=== PATIENT | female | born 1955 | race Caucasian/White ===

== ENCOUNTER → 2023-12-02 08:26 | Outpatient (REF) | payer OTHER, SELFPAY ==
[2023-12-02 12:14] LABS: ALT (SGPT) 22 U/L (0-35); AST (SGOT) 20 U/L (14-36); Albumin 4.5 g/dl (3.5-5.0); Alkaline Phosphatase 64 U/L (38-126); Blood Urea Nitrogen 15 mg/dl (7-17); Calcium 9.4 mg/dl (8.4-10.2); Carbon Dioxide 26 mmol/L (22-30); Chloride 106 mmol/L (98-107); Glucose 119 mg/dl (70-99); HDL Cholesterol 81 mg/dl; LDL Cholesterol, Calculated 99 mg/dl; Potassium 4.5 mmol/L (3.5-5.1); Sodium 140 mmol/L (135-145); Total Bilirubin 0.7 mg/dl (0.2-1.3); Total Cholesterol 194 mg/dl (50-199); Total Protein 7.3 g/dl (6.3-8.2); Triglyceride 73 mg/dl (10-149); Very Low Density Lipoprotein 14 mg/dl (0-30); eGFR > 60.00
[2023-12-02 12:38] LABS: TSH Reflex To Free T4 2.66 uIU/ml (0.47-4.68)
== END ==
LOC: HWLAB 08:26
PROVIDERS: ATTENDING PHYSICIAN Family Medicine
DX: R73.01 Impaired fasting glucose (principal); E78.00 Pure hypercholesterolemia, unspecified; Z00.00 Encounter for general adult medical examination without abnormal findings; Z86.39 Personal history of other endocrine, nutritional and metabolic disease
CPT/HCPCS: 36415; 80053; 80061; 83036; 84443

== ENCOUNTER → 2023-12-08 09:25 | Outpatient (REF) | payer OTHER, SELFPAY ==
[2023-12-08 15:57] LABS: Lyme Antibody Screen, EIA Negative (Negative)
== END ==
LOC: HWLAB 09:25
PROVIDERS: ATTENDING PHYSICIAN Family Medicine
DX: M25.50 Pain in unspecified joint (principal)
CPT/HCPCS: 36415; 86618

== ENCOUNTER → 2024-04-10 11:32 | Outpatient (REF) | payer OTHER, SELFPAY | LOC: MRI 3T 11:32 | PROVIDERS: ATTENDING PHYSICIAN Physician Assistant Surgical; FAMILY PHYSICIAN Family Medicine | DX: M25.512 Pain in left shoulder (principal) | CPT/HCPCS: 73221 ==

== ENCOUNTER → 2024-04-11 11:38 | Outpatient (REF) | payer OTHER, SELFPAY | LOC: HWWDC 11:38 | PROVIDERS: ATTENDING PHYSICIAN Obstetrics & Gynecology; FAMILY PHYSICIAN Family Medicine | DX: Z12.31 Encounter for screening mammogram for malignant neoplasm of breast (principal) | CPT/HCPCS: 77063; 77067 ==

== ENCOUNTER → 2024-07-18 09:03 | Outpatient (REF) | payer OTHER, SELFPAY ==
[2024-07-18 12:17] LABS: % Basophils 0.4 % (0-2); % Immature Granulocytes 0.7 % (0-0.5); % Lymphocytes 34.5 % (20.5-51.1); % Monocytes 19.1 % (1.7-9.3); % Neutrophils 43.3 % (42.2-75.2); Absolute Eosinophils 0.1 10^3/uL (0-0.7); Absolute Lymphocytes 1.6 10^3/uL (1.2-3.4); Absolute Monocytes 0.9 10^3/uL (0.1-0.6); Hematocrit 34.9 % (37.0-47.0); Hemoglobin 12.2 g/dL (12.0-16.0); Mean Corpuscular Hgb 28.9 pg (27.0-31.0); Mean Corpuscular Volume 82.7 fL (81.0-99.0); Mean Platelet Volume 10.8 fL (7.4-10.4); Nucleated Red Blood Cells % 0 %; Platelet Count 183 10^3/uL (130-400); Red Blood Cell Count 4.22 10^6/uL (4.20-5.40); Red Cell Dist. Width 12.3 % (11.5-14.5); White Blood Cell Count 4.6 10^3/uL (4.8-10.8)
[2024-07-18 12:38] LABS: Glycohemoglobin (HgbA1c) 5.7 % (4.0-5.6)
[2024-07-18 12:40] LABS: ALT (SGPT) 24 U/L (0-35); AST (SGOT) 21 U/L (14-36); Albumin 4.7 g/dl (3.5-5.0); Alkaline Phosphatase 46 U/L (38-126); Blood Urea Nitrogen 16 mg/dl (7-17); Calcium 9.8 mg/dl (8.4-10.2); Carbon Dioxide 25 mmol/L (22-30); Chloride 107 mmol/L (98-107); Glucose 111 mg/dl (70-99); HDL Cholesterol 88 mg/dl; LDL Cholesterol, Calculated 94 mg/dl; Potassium 4.8 mmol/L (3.5-5.1); Sodium 144 mmol/L (135-145); Total Bilirubin 0.6 mg/dl (0.2-1.3); Total Cholesterol 196 mg/dl (50-199); Total Protein 7.5 g/dl (6.3-8.2); Triglyceride 73 mg/dl (10-149); Very Low Density Lipoprotein 14 mg/dl (0-30); eGFR > 60.00
[2024-07-18 12:50] LABS: Vitamin D, 25-OH*** 39.7 ng/mL (30-80)
[2024-07-18 13:04] LABS: TSH Reflex To Free T4 2.24 uIU/ml (0.47-4.68)
[2024-07-18 15:59] LABS: Intact PTH 63.1 pg/ml (13.6-85.8)
== END ==
LOC: HWLAB 09:03
PROVIDERS: ATTENDING PHYSICIAN Family Medicine
DX: R73.01 Impaired fasting glucose (principal); E78.00 Pure hypercholesterolemia, unspecified; Z86.39 Personal history of other endocrine, nutritional and metabolic disease; E55.9 Vitamin D deficiency, unspecified; C64.9 Malignant neoplasm of unspecified kidney, except renal pelvis; R53.83 Other fatigue; Z13.29 Encounter for screening for other suspected endocrine disorder
CPT/HCPCS: 36415; 80053; 80061; 82306; 83036; 83970; 84443; 85025

== ENCOUNTER → 2024-07-27 08:51 | Outpatient (REF) | payer OTHER, SELFPAY ==
[2024-07-27 12:42] LABS: % Basophils 0.4 % (0-2); % Eosinophils 1.5 % (0-6); % Immature Granulocytes 0.4 % (0-0.5); % Lymphocytes 37.9 % (20.5-51.1); % Monocytes 18.6 % (1.7-9.3); % Neutrophils 41.2 % (42.2-75.2); Absolute Eosinophils 0.1 10^3/uL (0-0.7); Absolute Lymphocytes 1.8 10^3/uL (1.2-3.4); Absolute Monocytes 0.9 10^3/uL (0.1-0.6); Absolute Neutrophils 1.9 10^3/uL (1.4-6.5); Hematocrit 35.8 % (37.0-47.0); Hemoglobin 12.3 g/dL (12.0-16.0); Mean Corp Hgb Conc. 34.4 g/dL (33.0-37.0); Mean Corpuscular Hgb 29.4 pg (27.0-31.0); Mean Corpuscular Volume 85.4 fL (81.0-99.0); Mean Platelet Volume 11.1 fL (7.4-10.4); Nucleated Red Blood Cells % 0 %; Platelet Count 195 10^3/uL (130-400); Red Blood Cell Count 4.19 10^6/uL (4.20-5.40); Red Cell Dist. Width 11.9 % (11.5-14.5); White Blood Cell Count 4.7 10^3/uL (4.8-10.8)
[2024-07-27 12:48] LABS: Urine Albumin Negative (Neg - Trace); Urine Bilirubin Negative (Negative); Urine Character Clear (Clear); Urine Color Yellow; Urine Glucose Negative (Negative); Urine Ketone Negative (Negative); Urine Leukocyte Negative (Negative); Urine Nitrite Negative (Negative); Urine Occult Blood 1+ (Negative); Urine Urobilinogen Negative (Neg - 1+)
[2024-07-27 13:12] LABS: Urine Red Blood Cell 16-20 /HPF (0-2); Urine White Cell 0-2 /HPF (0-5)
[2024-07-27 13:13] LABS: Urine Bacteria Few (Negative)
[2024-07-27 13:18] LABS: Erythrocyte Sed Rate 14 mm/hour (0-20)
[2024-07-28 22:48] LABS: HLA-B27 Negative (Negative)
== END ==
LOC: HWLAB 08:51
PROVIDERS: ATTENDING PHYSICIAN Family Medicine
DX: D72.821 Monocytosis (symptomatic) (principal); C64.9 Malignant neoplasm of unspecified kidney, except renal pelvis; R53.83 Other fatigue; M25.50 Pain in unspecified joint
CPT/HCPCS: 36415; 81003; 81015; 84155; 84165; 85025; 85652; 86038; 86140; 86235; 86430; 86618; 86666; 86753; 86757; 86812

== ENCOUNTER → 2024-08-10 07:05 | Outpatient (REF) | payer OTHER, SELFPAY | LOC: HWRAD 07:05 | PROVIDERS: ATTENDING PHYSICIAN Family Medicine | DX: D72.821 Monocytosis (symptomatic) (principal); C64.9 Malignant neoplasm of unspecified kidney, except renal pelvis | CPT/HCPCS: 76775 ==

== ENCOUNTER → 2024-09-25 07:39 | Outpatient (REF) | payer OTHER, SELFPAY | LOC: EMG 07:39 | PROVIDERS: ATTENDING PHYSICIAN Orthopaedic Surgery; FAMILY PHYSICIAN Family Medicine | DX: R20.0 Anesthesia of skin (principal) | CPT/HCPCS: 95886; 95909 ==

== ENCOUNTER → 2024-10-08 07:49 | Outpatient (REF) | payer OTHER, SELFPAY | LOC: HWRAD 07:49 | PROVIDERS: ATTENDING PHYSICIAN Internal Medicine; FAMILY PHYSICIAN Family Medicine | DX: K21.9 Gastro-esophageal reflux disease without esophagitis (principal); R10.13 Epigastric pain | CPT/HCPCS: 76700 ==

== ENCOUNTER 2024-10-11 06:16 | Day surgery (SDC) | payer OTHER, SELFPAY | END 2024-10-11 13:43 | disposition home or self-care (01) | LOC: GI 06:16 | PROVIDERS: ATTENDING PHYSICIAN Internal Medicine | DX: R10.13 Epigastric pain (principal); R10.11 Right upper quadrant pain; K44.9 Diaphragmatic hernia without obstruction or gangrene; K22.2 Esophageal obstruction; K31.7 Polyp of stomach and duodenum; K21.00 Gastro-esophageal reflux disease with esophagitis, without bleeding; K25.9 Gastric ulcer, unspecified as acute or chronic, without hemorrhage or perforation; K31.89 Other diseases of stomach and duodenum | CPT/HCPCS: 43239; 88305; 88342 ==

== ENCOUNTER → 2024-11-13 08:23 | Outpatient (REF) | payer OTHER, SELFPAY ==
[2024-11-13 10:13] LABS: % Basophils 0.3 % (0-2); % Eosinophils 0.5 % (0-6); % Immature Granulocytes 0.5 % (0-0.5); % Lymphocytes 38.6 % (20.5-51.1); % Monocytes 16.5 % (1.7-9.3); % Neutrophils 43.6 % (42.2-75.2); Absolute Lymphocytes 1.4 10^3/uL (1.2-3.4); Absolute Monocytes 0.6 10^3/uL (0.1-0.6); Absolute Neutrophils 1.6 10^3/uL (1.4-6.5); Hematocrit 34.3 % (37.0-47.0); Hemoglobin 11.8 g/dL (12.0-16.0); Mean Corp Hgb Conc. 34.4 g/dL (33.0-37.0); Mean Corpuscular Hgb 29.1 pg (27.0-31.0); Mean Corpuscular Volume 84.7 fL (81.0-99.0); Mean Platelet Volume 9.9 fL (7.4-10.4); Nucleated Red Blood Cells % 0 %; Platelet Count 154 10^3/uL (130-400); Red Blood Cell Count 4.05 10^6/uL (4.20-5.40); Red Cell Dist. Width 12.6 % (11.5-14.5); White Blood Cell Count 3.7 10^3/uL (4.8-10.8)
[2024-11-13 10:16] LABS: ALT (SGPT) 23 U/L (0-35); AST (SGOT) 19 U/L (14-36); Albumin 4.7 g/dl (3.5-5.0); Alkaline Phosphatase 53 U/L (38-126); Blood Urea Nitrogen 13 mg/dl (7-17); Calcium 9.5 mg/dl (8.4-10.2); Carbon Dioxide 23 mmol/L (22-30); Chloride 106 mmol/L (98-107); Glucose 112 mg/dl (70-99); Potassium 4.8 mmol/L (3.5-5.1); Sodium 140 mmol/L (135-145); Total Protein 7.2 g/dl (6.3-8.2); eGFR > 60.00
[2024-11-13 10:30] LABS: Vitamin D, 25-OH*** 33.3 ng/mL (30-80)
[2024-11-13 11:01] LABS: Erythrocyte Sed Rate 3 mm/hour (0-20)
[2024-11-13 11:21] LABS: Folate 10.7 ng/ml (2.76-20); Vitamin B12 462 pg/ml (239-931)
[2024-11-14 19:05] LABS: CCP Antibody IgG/IgA 4 Units (0-19)
== END ==
LOC: HWLAB 08:23
PROVIDERS: ATTENDING PHYSICIAN Internal Medicine Rheumatology; FAMILY PHYSICIAN Family Medicine
DX: D51.9 Vitamin B12 deficiency anemia, unspecified (principal); E55.9 Vitamin D deficiency, unspecified; M25.50 Pain in unspecified joint
CPT/HCPCS: 36415; 80053; 82306; 82607; 82746; 85025; 85652; 86140; 86200

== ENCOUNTER → 2025-01-25 08:24 | Outpatient (REF) | payer OTHER, SELFPAY ==
[2025-01-25 09:55] LABS: % Basophils 0.3 % (0-2); % Eosinophils 1.2 % (0-6); % Immature Granulocytes 0.3 % (0-0.5); % Lymphocytes 41.1 % (20.5-51.1); % Monocytes 15.5 % (1.7-9.3); % Neutrophils 41.6 % (42.2-75.2); Absolute Lymphocytes 1.4 10^3/uL (1.2-3.4); Absolute Monocytes 0.5 10^3/uL (0.1-0.6); Absolute Neutrophils 1.4 10^3/uL (1.4-6.5); Hematocrit 33.9 % (37.0-47.0); Hemoglobin 11.8 g/dL (12.0-16.0); Mean Corp Hgb Conc. 34.8 g/dL (33.0-37.0); Mean Corpuscular Hgb 29.8 pg (27.0-31.0); Mean Corpuscular Volume 85.6 fL (81.0-99.0); Mean Platelet Volume 10.1 fL (7.4-10.4); Nucleated Red Blood Cells % 0 %; Platelet Count 155 10^3/uL (130-400); Red Blood Cell Count 3.96 10^6/uL (4.20-5.40); Red Cell Dist. Width 12.2 % (11.5-14.5); White Blood Cell Count 3.4 10^3/uL (4.8-10.8)
[2025-01-25 10:27] LABS: ALT (SGPT) 23 U/L (0-35); AST (SGOT) 20 U/L (14-36); Albumin 4.6 g/dl (3.5-5.0); Alkaline Phosphatase 41 U/L (38-126); Blood Urea Nitrogen 13 mg/dl (7-17); Calcium 9.4 mg/dl (8.4-10.2); Carbon Dioxide 27 mmol/L (22-30); Chloride 109 mmol/L (98-107); Glucose 117 mg/dl (70-99); HDL Cholesterol 80 mg/dl; LDL Cholesterol, Calculated 101 mg/dl; Potassium 4.6 mmol/L (3.5-5.1); Sodium 143 mmol/L (135-145); Total Bilirubin 0.9 mg/dl (0.2-1.3); Total Cholesterol 192 mg/dl (50-199); Total Protein 7.2 g/dl (6.3-8.2); Triglyceride 58 mg/dl (10-149); Very Low Density Lipoprotein 11 mg/dl (0-30); eGFR > 60.00
[2025-01-25 10:56] LABS: TSH Reflex To Free T4 2.46 uIU/ml (0.47-4.68)
[2025-01-25 13:05] LABS: Glycohemoglobin (HgbA1c) 5.8 % (4.0-5.6)
[2025-01-26 11:06] LABS: Intact PTH 94.5 pg/ml (13.6-85.8)
== END ==
LOC: HWLAB 08:24
PROVIDERS: ATTENDING PHYSICIAN Family Medicine
DX: R73.01 Impaired fasting glucose (principal); C64.9 Malignant neoplasm of unspecified kidney, except renal pelvis; D72.821 Monocytosis (symptomatic); R53.83 Other fatigue; E78.00 Pure hypercholesterolemia, unspecified
CPT/HCPCS: 36415; 80053; 80061; 83036; 83970; 84443; 85025

== ENCOUNTER → 2025-02-22 07:24 | Outpatient (REF) | payer OTHER, SELFPAY ==
[2025-02-22 09:43] LABS: Urine Albumin Negative (Neg - Trace); Urine Bilirubin Negative (Negative); Urine Character Clear (Clear); Urine Color Yellow; Urine Glucose Negative (Negative); Urine Ketone Negative (Negative); Urine Leukocyte 1+ (Negative); Urine Nitrite Negative (Negative); Urine Occult Blood Negative (Negative); Urine Specific Gravity 1.015 (<1.030); Urine Urobilinogen Negative (Neg - 1+)
[2025-02-22 10:47] LABS: Urine Amorphous Seen
[2025-02-22 10:48] LABS: Urine Mucus Many
[2025-02-22 10:52] LABS: Urine Red Blood Cell 0-2 /HPF (0-2)
== END ==
LOC: HWLAB 07:24
PROVIDERS: ATTENDING PHYSICIAN Registered Nurse
DX: R42 Dizziness and giddiness (principal); W57.XXXA Bitten or stung by nonvenomous insect and other nonvenomous arthropods, initial encounter; R41.0 Disorientation, unspecified
CPT/HCPCS: 36415; 81003; 81015; 86618; 86666; 86753; 86757; 87077; 87086; 87147

== ENCOUNTER 2025-03-05 18:32 | Inpatient (IN) | payer OTHER, SELFPAY ==
[2025-03-05 11:34] VITALS: BP 124/85
--- NOTE | 2025-03-05 12:11 | ED.GENMED ---
History of Present Illness
<DO Tutu aAron Last Filed: 03/05/25 12:18>
General
Chief Complaint: Abdominal Pain
Source: patient
Time Seen by Provider: 03/05/25 11:40
History of Present Illness
History of Present Illness:
The patient is a 69-year-old female presenting with severe abdominal pain that began the previous night. She describes the pain as constant with intermittent spasms and 'like a horrible cramp and a stabbing pain in the rectum,' which makes sitting
difficult. There is a relevant past medical history of volvulus and right-sided colon resection. The patient attempted to attribute the pain to her existing low back problems and took a muscle relaxant and two Advil thinking it might be related to
back spasms. She has not experienced relief from these measures. The patient reports feeling constipated with latterly occurring loose stools but states she passed a large stool of baseball size following a bisacodyl enema prior to that. The
abdominal pain radiates but is described as not exacerbated by palpation to the specific area during the exam.
Past History
<DO Tutu Aaron Last Filed: 03/05/25 12:18>
Past History
ED Past Medical History: Other (Migraine headaches, osteoarthritis)
ED Past Surgical History: Gynecological (Laparoscopic BTL), Orthopedic and Other (Parathyroidectomy)
Social History
Tobacco: Non-smoker
Alcohol: None
Living: with family
Employment: Employed
Family History
Family History: Negative Early CAD or CAD
Phy Exam
<DO Tutu Aaron Last Filed: 03/05/25 12:18>
Physical Exam
Physical Exam:
General: Awake, Alert, Oriented X3. Appears somewhat uncomfortable
Vitals: unremarkable
Head: Atraumatic
Eyes: Pupils equal, EOMI
Throat: Airway intact, no exudates
Neck: Trachea midline
Lungs: Clear and equal b/l
Heart: Regular rate, no murmurs
Abd: Soft, moderate tenderness to palpation of the central abdomen, no rebound, no distention,, No pulsatile mass
Rectal: No stool in the rectal vault
Neuro: Nonfocal
Skin: Warm, dry, no rash
Extremities: pulses equal b/l, no edema
Course
<Parth Encinas, DO - Last Filed: 03/05/25 12:18>
Orders/Labs/Results
Orders:
Orders
03/05/25 12:07
CT Abd/pel W Iv And Oral Contr Urgent
Comment:
Reason For Exam: abd pain
0.9% Sodium Chloride 1000 ml [Nss] 1,000 ml IV BOLUS
HYDROmorphone [Dilaudid] 0.5 mg IV NOW STA
Iohexol [Omnipaque] See Protocol PO NOW STA
Ondansetron Injectable [Zofran] 4 mg IV NOW STA
03/05/25 12:27
Complete Blood Count/With Diff Urgent
Manual Differential Urgent
03/05/25 12:35
Urinalysis Reflex To Culture Urgent
Date Specimen was Collected: 03/05/25
Time Specimen was Collected: 12:32
Urine Microscopic Reflex Cult Urgent
03/05/25 13:18
Comprehensive Metabolic Panel Urgent
Lipase Urgent
03/05/25 17:59
Admit/Transfer Patient As Directed
Co-Sign Provider:
Level of Care: Inpatient admission
Assign to:: Medical/Surgical
Physician / Group: [facility]/medicine
Diagnosis: colitis
Reason for Hospitalization: abd pain, colitis
Expected length of stay greater than two midnights?: Yes
ELOS- Estimated Length of Stay in days: 3
I certify the patient meets the requirements for IP care: Yes
PRN Pain Medication Management As Directed
May give lesser potent ordered pain med per pt: Yes
preference::
Protocol:: Medication orders for pain may be administered in a
manner that supports deferring to patient preference
when the pt is:
- Requesting an ordered lesser potent pain medication.
Least to most potent pain medications are defined
as: acetaminophen < NSAID < tramadol < opioids
(morphine, oxycodone, hydromorphone).
- Requesting a lesser dose of the same medication IF
ORDERED.
- Requesting a less intrusive route of administration
if both routes are prescribed by the provider (PO <
IV).
03/05/25 18:01
Code Status As Directed
Resuscitation Status: Full Code
03/05/25 18:06
EKG [Electrocardiogram (*1)] Stat
Reason for Study: QTc Monitoring
Abnormal Lab Results
03/05/25 03/05/25 03/05/25
12:27 12:35 13:18
WBC 19.1 H 10^3/uL
(4.8-10.8)
RBC 3.96 L 10^6/uL
(4.20-5.40)
Hgb 11.8 L g/dL
(12.0-16.0)
Hct 33.4 L %
(37.0-47.0)
Abs Neuts (Manual) 8.0 H 10^3/uL
(1.4-6.5)
Segmented Neutrophils 37 L %
(42-75)
Band Neutrophils 5 H %
(0-3)
Lymphocytes (Manual) 12 L %
(20-51)
Blast Cells 14 H* %
(-)
Chloride 110 H mmol/L
(98-107)
Glucose 123 H mg/dl
(70-99)
Urine Ketones 1+ A
(Negative)
Ur Occult Blood Reflex 2+ A
(Negative)
Urine Bacteria (Reflex) Few A
(Negative)
Urine Albumin (Reflex) 2+ A
(Neg - Trace)
03/05/25 12:27
03/05/25 13:18
Vital Signs
Initial and Last Documented VS:
Initial Vital Signs
Temp Pulse Resp BP Pulse Ox
98.0 F 97 17 124/85 97
03/05/25 11:34 03/05/25 11:34 03/05/25 11:34 03/05/25 11:34 03/05/25 11:34
Last Documented Vital Signs
Temp Pulse Resp BP Pulse Ox
98.0 F 75 20 116/64 96
03/05/25 11:34 03/05/25 18:15 03/05/25 18:15 03/05/25 14:00 03/05/25 17:30
<Skip Figueroa MD - Last Filed: 03/05/25 18:51>
Orders/Labs/Results
Orders:
Orders
03/05/25 12:07
CT Abd/pel W Iv And Oral Contr Urgent
Comment:
Reason For Exam: abd pain
0.9% Sodium Chloride 1000 ml [Nss] 1,000 ml IV BOLUS
HYDROmorphone [Dilaudid] 0.5 mg IV NOW STA
Iohexol [Omnipaque] See Protocol PO NOW STA
Ondansetron Injectable [Zofran] 4 mg IV NOW STA
03/05/25 12:27
Complete Blood Count/With Diff Urgent
Manual Differential Urgent
03/05/25 12:35
Urinalysis Reflex To Culture Urgent
Date Specimen was Collected: 03/05/25
Time Specimen was Collected: 12:32
Urine Microscopic Reflex Cult Urgent
03/05/25 13:18
Comprehensive Metabolic Panel Urgent
Lipase Urgent
03/05/25 17:59
Admit/Transfer Patient As Directed
Co-Sign Provider:
Level of Care: Inpatient admission
Assign to:: Medical/Surgical
Physician / Group: [facility]/medicine
Diagnosis: colitis
Reason for Hospitalization: abd pain, colitis
Expected length of stay greater than two midnights?: Yes
ELOS- Estimated Length of Stay in days: 3
I certify the patient meets the requirements for IP care: Yes
PRN Pain Medication Management As Directed
May give lesser potent ordered pain med per pt: Yes
preference::
Protocol:: Medication orders for pain may be administered in a
manner that supports deferring to patient preference
when the pt is:
- Requesting an ordered lesser potent pain medication.
Least to most potent pain medications are defined
as: acetaminophen < NSAID < tramadol < opioids
(morphine, oxycodone, hydromorphone).
- Requesting a lesser dose of the same medication IF
ORDERED.
- Requesting a less intrusive route of administration
if both routes are prescribed by the provider (PO <
IV).
03/05/25 18:01
Code Status As Directed
Resuscitation Status: Full Code
03/05/25 18:06
EKG [Electrocardiogram (*1)] Stat
Reason for Study: QTc Monitoring
Abnormal Lab Results
03/05/25 03/05/25 03/05/25
12:27 12:35 13:18
WBC 19.1 H 10^3/uL
(4.8-10.8)
RBC 3.96 L 10^6/uL
(4.20-5.40)
Hgb 11.8 L g/dL
(12.0-16.0)
Hct 33.4 L %
(37.0-47.0)
Abs Neuts (Manual) 8.0 H 10^3/uL
(1.4-6.5)
Segmented Neutrophils 37 L %
(42-75)
Band Neutrophils 5 H %
(0-3)
Lymphocytes (Manual) 12 L %
(20-51)
Blast Cells 14 H* %
(-)
Chloride 110 H mmol/L
(98-107)
Glucose 123 H mg/dl
(70-99)
Urine Ketones 1+ A
(Negative)
Ur Occult Blood Reflex 2+ A
(Negative)
Urine Bacteria (Reflex) Few A
(Negative)
Urine Albumin (Reflex) 2+ A
(Neg - Trace)
03/05/25 12:27
03/05/25 13:18
Vital Signs
Initial and Last Documented VS:
Initial Vital Signs
Temp Pulse Resp BP Pulse Ox
98.0 F 97 17 124/85 97
03/05/25 11:34 03/05/25 11:34 03/05/25 11:34 03/05/25 11:34 03/05/25 11:34
Last Documented Vital Signs
Temp Pulse Resp BP Pulse Ox
98.0 F 75 20 116/64 96
03/05/25 11:34 03/05/25 18:15 03/05/25 18:15 03/05/25 14:00 03/05/25 17:30
<Parth Encinas, - Last Filed: 03/05/25 12:18>
MDM/Problems Addressed
Differential Diagnosis Includes:
The Differential Diagnosis includes, in no particular order and is not limited to:
1. Bowel obstruction
2. Volvulus recurrence
3. Diverticulitis
4. Constipation
5. Hernia
6. Bowel ischemia
8. Abdominal aortic aneurysm
9. Appendicitis
10. Renal colic
MDM/Problems Addressed:
- Initiate blood work and a computed tomography scan with contrast due to prior bowel surgery to evaluate abdominal pain further.
- Administer anti-nausea and pain medication. Dilaudid is the preferred option as the patient has previously tolerated it.
- Review imaging results to assess for potential abdominal conditions given the surgical history and current symptoms.
<Skip Figueroa MD - Last Filed: 03/05/25 18:51>
*Critical Care Note
Total Time (30-74mins, 75-104mins- exclusive of procedures): Not Applicable
<Skip Figueroa MD - Last Filed: 03/05/25 18:51>
Update Note
Update Note:
CT shows colitis versus diverticulitis. With WBC of 19, warrants inpatient management. Also has a 14% blast cell.
ED Attending Note
<Parth Encinas DO - Last Filed: 03/05/25 12:18>
-
Portions of this chart may have been created with voice recognition software.� Occasional wrong word or��sound alike� substitutions may have occurred due to the inherent limitations of voice recognition software.
Discharge Plan
Departure
Patient Disposition: Admit
Date of Disposition: 03/05/25
Time of Disposition: 17:50
Presentation/result/management discussed w/ accepting MD/DO: Hospitalist
Discharge Problem:
Diverticulitis versus colitis, Elevated blast cells
Interventions
Interventions:
*Risk Screen - Suicide Last Done: 03/05/25 11:36
*General Assessment Last Done: 03/05/25 11:36
*Neglect/Abuse Screening Last Done: 03/05/25 11:36
*ED- Fall Risk Assessment Last Done: 03/05/25 12:33
*ED COVID-19 Vaccine History Last Done: 03/05/25 11:36
TQ-Ftbykt-Berpjshpbn Assessment Last Done: 03/05/25 12:02
[2025-03-05 12:24] VITALS: BP 129/68
[2025-03-05 12:26] VITALS: BMI 32.8
[2025-03-05] MEDS: OMNIPAQUE 50 ML PO (12:28)
[2025-03-05] MEDS: ZOFRAN 4 MG IV (12:30)
[2025-03-05] MEDS: NSS 1000 IV (12:30)
[2025-03-05] MEDS: DILAUDID 0.5 MG IV (12:30)
[2025-03-05 13:00] VITALS: BP 117/61
[2025-03-05 13:03] LABS: Hematocrit 33.4 % (37.0-47.0); Hemoglobin 11.8 g/dL (12.0-16.0); Mean Corp Hgb Conc. 35.3 g/dL (33.0-37.0); Mean Corpuscular Hgb 29.8 pg (27.0-31.0); Mean Corpuscular Volume 84.3 fL (81.0-99.0); Red Blood Cell Count 3.96 10^6/uL (4.20-5.40); White Blood Cell Count 19.1 10^3/uL (4.8-10.8)
[2025-03-05 13:03] LABS: Urine Albumin 2+ (Neg - Trace); Urine Bilirubin Negative (Negative); Urine Character Clear (Clear); Urine Color Yellow; Urine Glucose Negative (Negative); Urine Ketone 1+ (Negative); Urine Leukocyte Negative (Negative); Urine Nitrite Negative (Negative); Urine Occult Blood 2+ (Negative); Urine Urobilinogen Negative (Neg - 1+)
[2025-03-05 13:52] LABS: ALT (SGPT) 18 U/L (0-35); AST (SGOT) 18 U/L (14-36); Albumin 4.3 g/dl (3.5-5.0); Alkaline Phosphatase 40 U/L (38-126); Blood Urea Nitrogen 8 mg/dl (7-17); Carbon Dioxide 23 mmol/L (22-30); Chloride 110 mmol/L (98-107); Estimated Creatinine Clearance 75 ml/min; Glucose 123 mg/dl (70-99); Lipase 48 U/L (23-300); Potassium 3.9 mmol/L (3.5-5.1); Sodium 138 mmol/L (135-145); Total Bilirubin 0.8 mg/dl (0.2-1.3); Total Protein 7.1 g/dl (6.3-8.2); eGFR > 60.00
[2025-03-05 14:00] VITALS: BP 116/64
[2025-03-05 14:41] LABS: Urine Hyaline Cast 0-2 /LPF (0-2); Urine Mucus Few; Urine Urothelial Cell 0-2 /LPF (FEW)
[2025-03-05 14:42] LABS: Urine Bacteria Few (Negative); Urine Red Blood Cell 0-2 /HPF (0-2); Urine White Cell 0-2 /HPF (0-5)
[2025-03-05 17:31] LABS: Band Neutrophils 5 % (0-3); Nucleated Red Blood Cells % 2 %
[2025-03-05 17:41] LABS: Anisocytosis 1+; Microcytosis 1+; Normal RBC Morphology No; Platelets Checked Yes
[2025-03-05 17:42] LABS: Hypochromasia 1+; Poikilocytosis Slight; Total Cells Counted 100
--- NOTE | 2025-03-05 18:07 | HPS.HSE ---
Family Physician
-
Family Physician: Paxton Fink Jr.
Chief Complaint
-
Abdominal pain
History of Present Illness
69-year-old female with past medical history of laparoscopic BTL, with volvulus and right-sided colon resection, parathyroidectomy, migraine headaches and osteoarthritis comes in with severe abdominal pain that began the night before. Cramping-like
sensation, sometimes stabbing pain in in the rectum which makes it difficult for her to sit. Patient has been feeling constipated lately but passed large basal size stool following enema. No pain regimen has improved symptoms. Patient has some
moderate tenderness to palpation of central abdomen. Remains afebrile, respiratory 21, pulse 68, saturate 97% on room air, 116/64. White count noted to be 19.1, also notable blast cells of 14%. CT imaging with left lobe hepatic simple cyst and
anterior splenic simple cysts cystic lesion, slightly increased in size compared to prior study, subcentimeter low-attenuation posterior segment of the lobe hepatic lesion, too small to characterize. There is lack of contrast orally and although
noted a elongated segment of stranding about the mid to distal sigmoid colon with some subtle pectin mild sigmoid wall thickening. No weight loss, actual weight gain of 6 lbs in last few months. No night sweats.
Medical History
Past Medical History
Past Medical History: Reports Other (Migraine headaches, osteoarthritis))
Past Surgical History: Reports Other ( Gynecological (Laparoscopic BTL), Orthopedic and Other (Parathyroidectomy))
Social History
Tobacco: Non-smoker
Drug: None
Family History
Family History: Not pertinent
Allergies / Home Medications
Allergies reflects when Allergies were last updated in [facility].
Home Medications with original date entered in [facility]
Allergy/Medication List:
Allergies
Allergy/AdvReac Type Severity Reaction Status Date / Time
clindamycin Allergy C-DIFF Verified 03/05/25 11:35
erythromycin base Allergy Anaphylaxis, Verified 03/05/25 11:35
SWELLING
OF UVULA
influenza virus vaccine, Allergy ARTHRAGIAS Verified 03/05/25 11:35
specific (Influenza Virus
Vacc,Specific)
morphine Allergy EXTREME Verified 03/05/25 11:35
MIGRAINE,
NAUSEA AND
VOMITING
Home Medications
cholecalciferol (vitamin D3) 1 tab PO MOWEFR@0800 03/05/25
ibuprofen 200 mg tablet (Advil) 600 mg PO DAILYPRN PRN mild pain 03/05/25
magnesium salicylate 1 tab PO MOWEFR@0800 03/05/25
vitamin B complex 1 tab PO MOWEFR@0803/05/25
zinc 1 tab PO MOWEFR@79903/05/25
Review of Systems
-
History Source: Patient
A 12 point ROS was completed and negative except as noted: Yes
Physical Exam
Vital Signs
Vital Signs
Temp Pulse Resp BP Pulse Ox
98.0 F 68 21 116/64 97
03/05/25 11:34 03/05/25 16:00 03/05/25 16:00 03/05/25 14:00 03/05/25 16:00
Physical Exam
General: Well Developed, Well Nourished and Appears in Distress (mild)
HEENT: NormoCephalic
Respiratory: Clear
Cardiac: S1/S2 and Regular Rhythm
GI: Tender (mid abdomen upon palpation)
Musculoskeletal: No Clubbing
Skin: Warm
Neuro: Awake and AO x 3
Hematologic/Lymphatic: No Lymphadenopathy
Psych: Calm
Laboratory Results
-
03/05/25 12:27
03/05/25 13:18
Laboratory Results
Total Bilirubin 0.8 mg/dl (0.2-1.3) 03/05/25 13:18
AST 18 U/L (14-36) 03/05/25 13:18
ALT 18 U/L (0-35) 03/05/25 13:18
Alkaline Phosphatase 40 U/L (38-126) 03/05/25 13:18
Lipase 48 U/L (23-300) 03/05/25 13:18
Data Reviewed
-
CT Scan: Report Reviewed by me
Lab Data: Labs Reviewed by me
Impression/Plan
-
IMPRESSION:
69-year-old female with history of right sided colon resection presenting for abdominal pain now with possible diverticulitis, colitis, also notable for 2% blast cells
PLAN:
#Abdominal pain
#Colitis
#Sepsis with elevated white count, respiratory rate and source
� I suspect #diverticulitis/colitis
� Initiate ceftriaxone, Flagyl
� Follow-up stool cultures, C. difficile
� Monitor CBC, fever curve
� N.p.o. for now
� IV fluids
� Supportive care with pain regimen and antiemetics, supportive care
#Elevated blast cells
� Unclear etiology
� Smear being evaluated
� Oncology consulted
#Hx Positive Rickettsia
� Follow-up outpatient
#DVT prophylaxis
HSQ
--- NOTE | 2025-03-05 18:13 | PHANOTE ---
03/05/2025, pt. states that she took one tablet of her son's Flexeril today, but does not know the strength.
[2025-03-05] MEDS: UNASYN IV ×2 (18:43→23:17)
[2025-03-05 19:46] VITALS: BP 142/83; BMI 32.3
[2025-03-05] MEDS: FLUSH (NSS) 1 FLUSH IV ×2 (20:01→20:16)
[2025-03-05] MEDS: DILAUDID 0.25 MG IV (20:05)
[2025-03-05] MEDS: ROCEPHIN 1000 MG IV (20:06)
[2025-03-05] MEDS: STERILE WATER FOR INJECTION 10 ML IV (20:06)
[2025-03-05] MEDS: LR 1000 IV (20:07)
[2025-03-05] MEDS: FLAGYL 500 MG 100 IV (20:16)
--- NOTE | 2025-03-05 21:40 | PTCARENOTE ---
Pt admitted to [facility] around 1944. Pt walked from stretcher to bed w/ standby assist d/t 03/28 pain in abd and rectum, PRN meds given (see MAR). pt aaox3 and VSS. Pt oriented to room, call noe within reach, and plan of care ongoing.
[2025-03-05 23:11] VITALS: BP 125/65
[2025-03-05] MEDS: HEPARIN 5000 UNITS SC (23:17)
[2025-03-06] VITALS (12 sets, daily range): BP systolic 81–155; BP diastolic 64–87
[2025-03-06] MEDS: DILAUDID 0.25 MG IV ×2 (02:13→21:19)
[2025-03-06] MEDS: FLAGYL 500 MG 100 IV ×3 (04:21→20:01)
--- NOTE | 2025-03-06 05:18 | DOWNTIME ---
Addendum entered by Nash Barry RN 03/06/25 14:12:
Correction to downtime 03/06/2025 from 0100 to 03/06/25 at 0415.
Original Note:
There was a [employer] Operator Downtime on 03/05/2025 from 0100 to 03/06/2025 at 0415. Downtime documentation of patient's care, including medication administrations, has been reconciled in the electronic record per guidelines. Refer to the
patient's paper chart under the miscellaneous tab to see printed paper medication records and downtime forms.
[2025-03-06] MEDS: TYLENOL 650 MG PO ×3 (06:04→19:50)
[2025-03-06] MEDS: UNASYN IV (06:06)
[2025-03-06 06:29] LABS: Mean Platelet Volume 10.2 fL (7.4-10.4); Platelet Count 91 10^3/uL (130-400)
[2025-03-06 06:30] LABS: Hematocrit 31.6 % (37.0-47.0); Mean Corp Hgb Conc. 34.8 g/dL (33.0-37.0); Mean Corpuscular Volume 86.1 fL (81.0-99.0); Mean Platelet Volume 9.9 fL (7.4-10.4); Platelet Count 83 10^3/uL (130-400); Red Blood Cell Count 3.67 10^6/uL (4.20-5.40); Red Cell Dist. Width 13.2 % (11.5-14.5); White Blood Cell Count 17.9 10^3/uL (4.8-10.8)
[2025-03-06 06:35] LABS: ALT (SGPT) 17 U/L (0-35); AST (SGOT) 16 U/L (14-36); Alkaline Phosphatase 40 U/L (38-126); Blood Urea Nitrogen 6 mg/dl (7-17); Calcium 8.5 mg/dl (8.4-10.2); Carbon Dioxide 26 mmol/L (22-30); Chloride 110 mmol/L (98-107); Estimated Creatinine Clearance 74 ml/min; Glucose 115 mg/dl (70-99); Magnesium 2.1 mg/dl (1.6-2.3); Potassium 4.1 mmol/L (3.5-5.1); Sodium 142 mmol/L (135-145); Total Bilirubin 0.9 mg/dl (0.2-1.3); Total Protein 6.6 g/dl (6.3-8.2); eGFR > 60.00
[2025-03-06] MEDS: HEPARIN 5000 UNITS SC ×2 (08:32→16:26)
[2025-03-06] MEDS: LR 1000 IV (08:42)
[2025-03-06 09:33] LABS: Absolute Neutrophils -Man Diff 7.8 10^3/uL (1.4-6.5); Lymphocytes 13 % (20-51); Segmented Neutrophils 36 % (42-75)
[2025-03-06 09:34] LABS: Atypical Lymphocytes 5 %; Metamyelocytes 4 % (-); Monocytes 4 % (2-9); Myelocytes 4 % (-)
[2025-03-06 09:35] LABS: Promyelocytes 22 % (-)
[2025-03-06 09:36] LABS: Blasts 9 % (-)
--- NOTE | 2025-03-06 10:06 | CON.ONC ---
Consultation
-
Date Consultation Requested: 03/05/25
Date Consultation Performed: 03/06/25
Requesting Provider: Seamus Aguilar MD
Performing Provider: Kameron Dobbins
Reason for Consultation: Elevated blasts on peripheral smear
Impression
Impression
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
Abdominal pain
Sepsis
Diverticulitis/colitis
History of renal cell carcinoma status post left partial nephrectomy
Plan
Plan
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
Was seen in the outpatient hematology office in July 2024, for slightly elevated monocytosis
Now presents to the emergency department with elevated white count 19.1, may be component of reactive secondary to sepsis
CBC with differential returned with 9% blast cells, originally read as 14%. Promyelocytes 22%. Total blast count 31%. Slide results reviewed and confirmed with pathologist personally.
Ultimately patient will require bone marrow biopsy for definitive diagnosis, was approved by [employer]OR for inpatient and is pending for today, we will follow-up on results
Flow cytometry sent and pending
Patient was in IR suite during visit. Spoke to patient's at bedside, reportedly patient is understandably upset about recent test results and suspected diagnosis. Reached agreement to present findings and results to patient during rounds
tomorrow
Will continue to follow along
#Sepsis
#Abdominal pain
Unsure if related to suspected AML, abdominal pain would be unusual presentation
Continue supportive measures with IV fluids and antibiotics per primary
Patient History
History of Present Illness
69-year-old female past medical history renal cell carcinoma status post partial nephrectomy, hyperparathyroidism, arthritis, SVT, hyperlipidemia presented to [facility] emergency department with a complaint of abdominal pain. This is thought to be
possible diverticulitis/colitis. CT scan demonstrated suspected diverticulitis or colitis. Patient was found to be septic, was started on IV fluids, empiric antibiotics and admitted. Patient was seen in the outpatient hematology office in
July 2024, at that time she was consulted for monocytes being slightly elevated, 0.8. At that time there was nothing to do from hematologic perspective for such mild monocytosis and she was deferred to her PCP. She now presents with a white
count elevated 19.9 with a peripheral smear demonstrating elevated blasts. Peripheral smear was reviewed by hematology tech who counted 14% blast cells in the peripheral smear, was later downgraded to 9% blasts with 22% promyelocytes, totaling 31%
blasts on peripheral smear. This was confirmed by Dr. Kameron Casas who laid eyes on the sample in the laboratory. As well as confirmed personally with pathologist Dr. Preston. Hematology was consulted for suspected AML.
Past-Medical/Surgical History
Left partial nephrectomy 2019, right radius fracture, right bicep muscle repair, parathyroidectomy 2009, right colon resection
Patient Medication
�Medication �Instructions �Recorded �Confirmed �Last Taken �Type
cholecalciferol (vitamin D3) 1 tab PO MOWEFR@0800 03/05/25 03/05/25 02/27/25 History
ibuprofen 200 mg tablet (Advil) 600 mg PO DAILYPRN PRN mild pain 03/05/25 03/05/25 03/05/25 History
magnesium salicylate 1 tab PO MOWEFR@0800 03/05/25 03/05/25 02/27/25 History
propranolol 10 mg tablet 10 mg PO PRN SVT 03/05/25 Unknown History
vitamin B complex 1 tab PO MOWEFR@0800 03/05/25 03/05/25 02/27/25 History
zinc 1 tab PO MOWEFR@0800 03/05/25 03/05/25 02/27/25 History
Active Medications
Generic Name Dose Route Start Last Admin
Trade Name Freq PRN Reason Stop Dose Admin
Acetaminophen 650 mg 03/05/25 19:39 03/06/25 06:04
Acetaminophen 325 Mg Tablet PO 04/02/25 19:38 650 mg
Q4HPRN PRN Administration
mild pain/OLGUIN/temp> 100.4F
Bisacodyl 10 mg 03/05/25 19:39
Bisacodyl 10 Mg Rectal Suppository RECTAL 04/02/25 19:38
[id number] PRN
constipation
Ceftriaxone Sodium 1,000 mg 03/05/25 20:00 03/05/25 20:06
Ceftriaxone 1000 Mg / 10 Ml Vial IV 1,000 mg
Q24H TRISTEN Administration
Heparin Sodium 5,000 units 03/06/25 00:00 03/06/25 08:32
Heparin 5,000 Units/Ml 1 Ml Vial SC 04/03/25 00:00 5,000 units
Q8 TRISTEN Administration
Hydromorphone HCl 0.25 mg 03/05/25 19:39 03/06/25 02:13
Hydromorphone 0.25 Mg/0.5 Ml Syringe IV 03/19/25 19:38 0.25 mg
Q3HPRN PRN Administration
moderate to severe pain
Lactated Ringer's 1,000 mls @ 100 mls/hr 03/05/25 19:39 03/06/25 08:42
Lr IV 1,000 mls
.Q10H TRISTEN Administration
Metronidazole 100 mls @ 100 mls/hr 03/05/25 20:00 03/06/25 04:21
Flagyl 500 Mg IV 100 mls
Q8H TRISTEN Administration
Ondansetron HCl 4 mg 03/05/25 19:39
Ondansetron 4 Mg/2 Ml Vial IV 04/02/25 19:38
Q6HPRN PRN
nausea and vomiting
Polyethylene Glycol 17 grams 03/05/25 19:39
Polyethylene Glycol Powder 17 Grams Packet PO 04/02/25 19:38
DAILYPRN PRN
constipation
Senna/Docusate Sodium 1 tablet 03/05/25 19:39
Docusate W/Senna (Jasmina-Colace) Tablet PO 04/02/25 19:38
BIDPRN PRN
constipation
Sodium Chloride 0 flush 03/05/25 20:00
Sodium Chloride 0.9% (Flush) Syringe IV 04/02/25 19:59
PER PROTOCOL TRISTEN
Sodium Chloride 0 flush 03/05/25 19:50 03/05/25 20:16
0.9% Nacl Flush If Lactated Ringers Ivf Ordered IV 04/02/25 19:49 1 flush
BID@ TRISTEN Administration
Sterile Water 10 ml 03/05/25 20:00 03/05/25 20:06
Sterile Water For Injection 10 Ml Vial IV 04/02/25 19:59 10 ml
Q24H TRISTEN Administration
Review of Systems
-
Unable to obtain full review of systems at this time due to: Other (Unable to obtain, patient in IR suite during visit.)
Physical Exam
-
General: Other (Unable to obtain, patient in IR suite during visit)
Labs
Lab Results
WBC 17.9 10^3/uL (4.8-10.8) H 03/06/25 05:36
RBC 3.67 10^6/uL (4.20-5.40) L 03/06/25 05:36
Hgb 11.0 g/dL (12.0-16.0) L 03/06/25 05:36
Hct 31.6 % (37.0-47.0) L 03/06/25 05:36
MCV 86.1 fL (81.0-99.0) 03/06/25 05:36
MCH 30.0 pg (27.0-31.0) 03/06/25 05:36
MCHC 34.8 g/dL (33.0-37.0) 03/06/25 05:36
RDW 13.2 % (11.5-14.5) 03/06/25 05:36
Plt Count 83 10^3/uL (130-400) L 03/06/25 05:36
MPV 9.9 fL (7.4-10.4) 03/06/25 05:36
Creatinine 0.8 mg/dL (0.6-1.0) 03/06/25 05:36
Vital Signs
Vital Signs
Temp Pulse Resp BP Pulse Ox
99.0 F 84 16 109/64 93
03/06/25 07:00 03/06/25 07:00 03/06/25 07:00 03/06/25 07:00 03/06/25 07:00
[2025-03-06 10:26] LABS: LDH 228 U/L (120-246)
[2025-03-06 11:04] LABS: INR 1.22; PT 15.9 Sec (11.4-14.6)
[2025-03-06] MEDS: ATIVAN 0.5 MG IV (11:49)
[2025-03-06] MEDS: NSS (PRESERVATIVE FREE) 0.25 ML IV (11:50)
--- NOTE | 2025-03-06 13:25 | W.PN.HOSP.TC ---
Today's Communication/Plan
-
bone marrow biopsy
f/u flow
abx
adv to cld if tolerating
Assessment / Plan
Assessment / Plan
Physical Exam
General: Well Developed, Well Nourished and Appears in Distress (mild)
HEENT: NormoCephalic
Respiratory: Clear
Cardiac: S1/S2 and Regular Rhythm
GI: Tender (mid abdomen upon palpation)
Musculoskeletal: No Clubbing
Skin: Warm
Neuro: Awake and AO x 3
Hematologic/Lymphatic: No Lymphadenopathy
Psych: Calm
#Abdominal pain
#Colitis
#Sepsis with elevated white count, respiratory rate and source
� I suspect #diverticulitis/colitis most likely infectious - if not resolving then can consider oncology pathology
� Initiate ceftriaxone, Flagyl
� Follow-up stool cultures
� Monitor CBC, fever curve
� Adv to CLD if tolerating
� IV fluids
� Supportive care with pain regimen and antiemetics, supportive care
#Elevated blast cells
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
� Smear being evaluated
� Oncology consulted
- Bone marrow Bx today
- Flow cyto send and pending
#Hx Positive Rickettsia
� Follow-up outpatient
#DVT prophylaxis
HSQ
Total time spent on today's encounter was 50 minutes which included time spent in counseling the patient/family regarding diagnosis and treatment plan as listed above, goals of care, and symptom management. Case was discussed with nursing staff,
specialists, and care coordinators/case management. All labs and imaging personally reviewed by me. Remainder the time spent in detailed review of previous records, lab data, imaging, and other medical provider documentation.
Anticipated Discharge: > 48 hours
Subjective/Interval History
-
Date of Service: March 06, 2025
still with abdominal pain; tenderness to areas of lymph nodes around back of head and neck
Objective Data
-
Labs:
Laboratory Results
03/05/25 03/06/25 03/06/25
12:27 05:36 10:35
WBC 17.9 H
Hgb 11.0 L
Hct 31.6 L
Plt Count 91 L 83 L
PT 15.9 H
INR 1.22
Sodium 142
Potassium 4.1
Chloride 110 H
Carbon Dioxide 26
BUN 6 L
Creatinine 0.8
Glucose 115 H
Calcium 8.5
Total Bilirubin 0.9
AST 16
ALT 17
Alkaline Phosphatase 40
Vital Signs:
Vital Signs
Temp Pulse Resp BP Pulse Ox
98.3 F 97 18 153/81 93
03/06/25 11:32 03/06/25 13:05 03/06/25 13:05 03/06/25 13:05 03/06/25 13:05
Review of Systems
-
History Source: Patient
All other systems: Not reviewed unless documented
Data Reviewed
-
CT Scan: Report Reviewed by me
Labs: Labs Reviewed by me
--- NOTE | 2025-03-06 18:04 | CM ---
CM met with patient at bedside to complete IA. Gladys was admitted with sepsis and MD suspects diverticulits/colitis. Currently NPO with IV fluids.
Gladys lives wtih her in a 2 story home with 3 entry steps. She reports typically being (I) amb and adls, no DME in the home.
Plan: CM to follow to coordinate discharge planning needs as identified through hospitalization.
PCP:Paxton Fink
Pharmacy: [facility] in [place].
[2025-03-06] MEDS: FLUSH (NSS) 1 FLUSH IV (20:00)
[2025-03-06] MEDS: ROCEPHIN 1000 MG IV (20:01)
[2025-03-06] MEDS: STERILE WATER FOR INJECTION 10 ML IV (20:01)
[2025-03-06] MEDS: LR IV (22:29)
[2025-03-07] MEDS: HEPARIN 5000 UNITS SC ×3 (00:09→15:11)
[2025-03-07] MEDS: FLAGYL 500 MG 100 IV ×3 (04:56→19:45)
[2025-03-07] MEDS: TYLENOL 650 MG PO ×2 (06:07→15:10)
[2025-03-07 06:24] LABS: Hemoglobin 11.2 g/dL (12.0-16.0); Mean Corpuscular Hgb 29.8 pg (27.0-31.0); Mean Corpuscular Volume 85.1 fL (81.0-99.0); Platelet Count 82 10^3/uL (130-400); Red Blood Cell Count 3.76 10^6/uL (4.20-5.40); Red Cell Dist. Width 12.8 % (11.5-14.5); White Blood Cell Count 25.2 10^3/uL (4.8-10.8)
[2025-03-07 06:36] LABS: ALT (SGPT) 17 U/L (0-35); AST (SGOT) 17 U/L (14-36); Albumin 4.2 g/dl (3.5-5.0); Alkaline Phosphatase 46 U/L (38-126); Blood Urea Nitrogen 5 mg/dl (7-17); Calcium 8.6 mg/dl (8.4-10.2); Carbon Dioxide 24 mmol/L (22-30); Chloride 111 mmol/L (98-107); Estimated Creatinine Clearance 85 ml/min; Glucose 138 mg/dl (70-99); Sodium 141 mmol/L (135-145); Total Bilirubin 0.6 mg/dl (0.2-1.3); Total Protein 6.9 g/dl (6.3-8.2); eGFR > 60.00
[2025-03-07 07:00] VITALS: BP 131/75
--- NOTE | 2025-03-07 09:08 | W.PN.ONC ---
Today's Communication / Plan
-
Initiate [place] transfer for inpatient induction chemotherapy
Initiate allopurinol, echo
DIC and tumor lysis labs ordered
If patient requires any blood products, would recommend CMV negative, irradiated products as she is at risk for infections
Colorectal consult to rule out abscess, pilonidal cyst, fissure
Impression
Impression
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
Abdominal pain
Sepsis
Diverticulitis/colitis
History of renal cell carcinoma status post left partial nephrectomy
Plan
Plan
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
#Risk of immunosuppression
Was seen in the outpatient hematology office in July 2024, for slightly elevated monocytosis
Now presents to the emergency department with elevated white count 19.1, may be component of reactive secondary to sepsis. Patient is currently not neutropenic.
CBC with differential returned with 9% blast cells, originally read as 14%. Promyelocytes 22%. Total blast count 31%. Slide results reviewed and confirmed with pathologist personally.
Status post bone marrow biopsy successfully completed, final pathology results pending
Flow cytometry sent and pending
Patient will require transfer to [place] for inpatient induction chemotherapy. Nurse practitioner Dimple Leija has reached out to [place] Dr. Jaime to initiate transfer process. Transfer not excepted for now, waiting for results of bone marrow flow
cytometry results prior to transfer.
If patient requires any blood products during her stay, please give CMV negative, irradiated products as patient is risk for infection with AML
Added tumor lysis labs and DIC panel, will also order echo and start allopurinol per [place] inpatient oncology recommendations
Will continue to follow along
#Sepsis
#Abdominal pain
Unsure if related to suspected AML, abdominal pain would be unusual presentation
Colorectal consult to rule out abscess, pilonidal cyst, fissure
Continue supportive measures with IV fluids and antibiotics per primary
Subjective/Objective
Subjective/Objective
Patient complaining of bone pain, fatigue, nausea and vomiting.
Vital Signs:
Vital Signs
Temp Pulse Resp BP Pulse Ox
98.7 F 78 18 131/75 94
03/07/25 07:00 03/07/25 07:00 03/07/25 07:00 03/07/25 07:00 03/07/25 07:00
Lab Results:
Laboratory Data
WBC 25.2 10^3/uL (4.8-10.8) H 03/07/25 05:47
Hgb 11.2 g/dL (12.0-16.0) L 03/07/25 05:47
Plt Count 82 10^3/uL (130-400) L 03/07/25 05:47
PT 15.9 Sec (11.4-14.6) H 03/06/25 10:35
INR 1.22 03/06/25 10:35
eGFR > 60.00 03/07/25 05:47
[2025-03-07 11:25] LABS: Uric Acid 6.7 mg/dl (2.5-6.2)
[2025-03-07] MEDS: ZYLOPRIM 300 MG PO (12:13)
--- NOTE | 2025-03-07 12:42 | W.PN.HOSP.TC ---
Today's Communication/Plan
-
[facility] wbc
f/u path and bone marrow
Repeat CT A/P with oral contrast
CRS
Assessment / Plan
Assessment / Plan
Physical Exam
General: Well Developed, Well Nourished and Appears in Distress (mild)
HEENT: NormoCephalic
Respiratory: Clear
Cardiac: S1/S2 and Regular Rhythm
GI: Tender (mid abdomen upon palpation)
Musculoskeletal: No Clubbing
Skin: Warm
Neuro: Awake and AO x 3
Hematologic/Lymphatic: No Lymphadenopathy
Psych: Calm
#Abdominal pain
#Colitis
#Sepsis with elevated white count, respiratory rate and source
� I suspect #diverticulitis/colitis most likely infectious
- With rectal pressure improved yet still present, CT A/P with oral contrast to better eval distally
- Onc consulted CRS
� Initiate ceftriaxone, Flagyl
� Follow-up stool cultures
� Monitor CBC, fever curve
� Adv to FLD
� IV fluids
� Supportive care with pain regimen and antiemetics, supportive care
#Elevated blast cells
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
� Smear being evaluated
� Oncology consulted
- Bone marrow Bx today
- Flow cyto send and pending
- Onc engaged with [facility] regarding Ts - awaiting path results
#Hx Positive Rickettsia
� Follow-up outpatient
#DVT prophylaxis
HSQ
Total time spent on today's encounter was 51 minutes which included time spent in counseling the patient/family regarding diagnosis and treatment plan as listed above, goals of care, and symptom management. Case was discussed with nursing staff,
specialists, and care coordinators/case management. All labs and imaging personally reviewed by me. Remainder the time spent in detailed review of previous records, lab data, imaging, and other medical provider documentation.
Anticipated Discharge: > 48 hours
Subjective/Interval History
-
Date of Service: March 07, 2025
abd pain improved;
Objective Data
-
Labs:
Laboratory Results
03/07/25
05:47
WBC 25.2 H
Hgb 11.2 L
Hct 32.0 L
Plt Count 82 L
Sodium 141
Potassium 4.0
Chloride 111 H
Carbon Dioxide 24
BUN 5 L
Creatinine 0.7
Glucose 138 H
Calcium 8.6
Total Bilirubin 0.6
AST 17
ALT 17
Alkaline Phosphatase 46
Vital Signs:
Vital Signs
Temp Pulse Resp BP Pulse Ox
98.7 F 78 18 131/75 94
03/07/25 07:00 03/07/25 07:00 03/07/25 07:00 03/07/25 07:00 03/07/25 07:00
I&O
03/06/25 03/07/25 03/08/25
06:59 06:59 06:59
Intake Total 300 / 300
Balance 300 / 300
Review of Systems
-
History Source: Patient
All other systems: Not reviewed unless documented
Data Reviewed
-
CT Scan: Report Reviewed by me
Labs: Labs Reviewed by me
[2025-03-07 15:00] VITALS: BP 151/84
[2025-03-07] MEDS: OMNIPAQUE 50 ML PO (15:05)
--- NOTE | 2025-03-07 17:44 | CON.CRS ---
Medical History
-
History of Present Illness:
Patient is a 69-year-old female with PMH of cecal volvulus s/p right hemicolectomy 2013, migraines who presents with rectal pain/pressure starting Tuesday. She also had the feeling like she needed to pass a bowel movement but could not. She does
usually have issues with constipation, sometimes requiring self digitalization. The pain in the low pelvis and rectum did not necessarily get better, but it was not improving. So she went to the ED. She was also complaining of lower abdominal
discomfort and nausea, but denied any vomiting. She had some bloody mucus, yesterday and started having liquid brown stools today. Her last colonoscopy was by Dr. Pearl in 2012, which was normal and was recommended to repeat in 10 years. In the
ED, her WBC was 25.2, 20% blasts, CT scan showing left kidney stone and inflammation of the sigmoid colon concerning for diverticulitis versus colitis. She has never had diverticulitis in the past.
Past Medical History
Past Medical History: Other (As above)
Past Surgical History: Other (Shoulder surgery x 3, laparoscopic BTL, right hemicolectomy 2013, partial parathyroid removal, kidney tumor removal, cataracts)
Family History
Family History: Other (Mom had diverticulitis requiring colostomy, PGM with colon cancer)
Allergies / Home Medications
Allergy/AdvReac Type Severity Reaction Status Date / Time
clindamycin Allergy C-DIFF Verified 03/05/25 11:35
erythromycin base Allergy Anaphylaxis, Verified 03/05/25 11:35
SWELLING
OF UVULA
influenza virus vaccine, Allergy ARTHRAGIAS Verified 03/05/25 11:35
specific (Influenza Virus
Vacc,Specific)
morphine Allergy EXTREME Verified 03/05/25 11:35
MIGRAINE,
NAUSEA AND
VOMITING
�Medication �Instructions �Recorded �Confirmed �Type
cholecalciferol (vitamin D3) 1 tab PO MOWEFR@0800 03/05/25 03/05/25 History
ibuprofen 200 mg tablet (Advil) 600 mg PO DAILYPRN PRN mild pain 03/05/25 03/05/25 History
magnesium salicylate 1 tab PO MOWEFR@0800 03/05/25 03/05/25 History
propranolol 10 mg tablet 10 mg PO PRN SVT 03/05/25 History
vitamin B complex 1 tab PO MOWEFR@0800 03/05/25 03/05/25 History
zinc 1 tab PO MOWEFR@0800 03/05/25 03/05/25 History
Review of Systems
-
A 10 point review of systems was completed, and was negative except as per HPI.
Physical Exam
Vital Signs
Temp 98.8 F 03/07/25 15:00
Pulse 82 03/07/25 15:00
Resp Rate 17 03/07/25 15:00
Blood pressure 151/84 03/07/25 15:00
SaO2 97 03/07/25 15:00
03/06/25 03/07/25 03/08/25
06:59 06:59 06:59
Actual Weight 90.628 kg
Body Mass Index (BMI) 32.3
Lab Results / Allergies
03/07/25 05:47
03/07/25 05:47
WBC 25.2 10^3/uL (4.8-10.8) H 03/07/25 05:47
Hgb 11.2 g/dL (12.0-16.0) L 03/07/25 05:47
Hct 32.0 % (37.0-47.0) L 03/07/25 05:47
Plt Count 82 10^3/uL (130-400) L 03/07/25 05:47
Allergy/AdvReac Type Severity Reaction Status Date / Time
clindamycin Allergy C-DIFF Verified 03/05/25 11:35
erythromycin base Allergy Anaphylaxis, Verified 03/05/25 11:35
SWELLING
OF UVULA
influenza virus vaccine, Allergy ARTHRAGIAS Verified 03/05/25 11:35
specific (Influenza Virus
Vacc,Specific)
morphine Allergy EXTREME Verified 03/05/25 11:35
MIGRAINE,
NAUSEA AND
VOMITING
Physical Exam
General: Well Developed, Well Nourished and No Apparent Distress
HEENT: Normocephalic and Atraumatic
Respiratory: Non Labored Respirations
GI: Soft, Non Distended, Tender (mildly tender in the lower abdomen) and Other (no rebound or guarding)
Rectal: Other (rectal-no concerning erythema or fluctuance externally, nontender externally, ROBERTO-mild pain on posterior traction, but otherwise no masses, no gross blood, no fluctuance, did not reproduce the pain she was experiencing)
Assessment / Plan
-
Patient is a 69-year-old female with PMH of cecal volvulus s/p right hemicolectomy 2013, migraines who presents with rectal pain/pressure starting Tuesday. She also had the feeling like she needed to pass a bowel movement but could not. She does
usually have issues with constipation, sometimes requiring self digitalization. The pain in the low pelvis and rectum did not necessarily get better, but it was not improving. So she went to the ED. She was also complaining of lower abdominal
discomfort and nausea, but denied any vomiting. She had some bloody mucus, yesterday and started having liquid brown stools today. Her last colonoscopy was by Dr. Pearl in 2012, which was normal and was recommended to repeat in 10 years. In the
ED, her WBC was 25.2, 20% blasts, CT scan showing left kidney stone and inflammation of the sigmoid colon concerning for diverticulitis versus colitis. She has never had diverticulitis in the past.
Tmax 100.0, vital signs stable
� Diverticulitis
�Personally reviewed and interpreted and agreed with findings; appears to be most likely diverticulitis, although colitis of other etiology is a possibility, such as infectious or inflammatory
�Will send stool cultures, CRP and fecal calprotectin
-Will need outpatient colonoscopy in 4-6 weeks
- No acute surgical intervention, recommend nonoperative measures; loop of inflamed sigmoid is looping into the pelvis, likely causing her rectal pain
� Continue IV antibiotics
� Okay for full liquids
� Recommend DVT PPx
� Appreciate oncology for AML workup
� Appreciate hospitalist
[2025-03-07] MEDS: STERILE WATER FOR INJECTION 10 ML IV (19:45)
[2025-03-07] MEDS: ROCEPHIN 1000 MG IV (19:45)
[2025-03-07 23:00] VITALS: BP 117/61
[2025-03-07] MEDS: HEPARIN SC (23:28)
[2025-03-08] MEDS: FLAGYL 500 MG 100 IV ×2 (04:55→13:17)
[2025-03-08 06:27] LABS: INR 1.34; PT 16.9 Sec (11.4-14.6)
[2025-03-08 06:28] LABS: APTT 33.2 Sec (23.4-35.0); Fibrinogen 176 MG/DL (199-459)
[2025-03-08 06:33] LABS: Hematocrit 31.7 % (37.0-47.0); Hemoglobin 11.2 g/dL (12.0-16.0); Mean Corp Hgb Conc. 35.3 g/dL (33.0-37.0); Mean Corpuscular Hgb 29.8 pg (27.0-31.0); Mean Corpuscular Volume 84.3 fL (81.0-99.0); Platelet Count 83 10^3/uL (130-400); Red Blood Cell Count 3.76 10^6/uL (4.20-5.40); Reticulocyte Count 1.3 % (0.4-2.8); White Blood Cell Count 36.9 10^3/uL (4.8-10.8)
[2025-03-08 06:44] LABS: ALT (SGPT) 17 U/L (0-35); AST (SGOT) 20 U/L (14-36); Albumin 4.2 g/dl (3.5-5.0); Alkaline Phosphatase 46 U/L (38-126); Blood Urea Nitrogen 4 mg/dl (7-17); Calcium 8.8 mg/dl (8.4-10.2); Carbon Dioxide 26 mmol/L (22-30); Chloride 109 mmol/L (98-107); Estimated Creatinine Clearance 85 ml/min; Glucose 130 mg/dl (70-99); LDH 313 U/L (120-246); Phosphorus 2.2 mg/dl (2.5-4.5); Potassium 3.5 mmol/L (3.5-5.1); Sodium 142 mmol/L (135-145); Total Bilirubin 0.7 mg/dl (0.2-1.3); Total Protein 6.9 g/dl (6.3-8.2); Uric Acid 6.8 mg/dl (2.5-6.2); eGFR > 60.00
[2025-03-08 06:45] LABS: D-Dimer > 20.00 ug/mlFEU (0.00-0.50)
[2025-03-08 07:47] VITALS: BP 141/73
[2025-03-08] MEDS: HEPARIN SC ×2 (08:26→15:47)
[2025-03-08] MEDS: ZYLOPRIM 300 MG PO (08:27)
--- NOTE | 2025-03-08 10:18 | W.PN.CRS1 ---
Today's Communication / Plan
-
remain on fulls
trend cbc
c diff added
Assessment/Plan
-
Most likely diverticulitis, although colitis of other etiology is a possibility, such as infectious or inflammatory
Vitals normal
WBC 36.9 (25.2), Hgb 11.2
CRP 50.3 (82.5)
� Stool cultures and fecal procal pending. Added c.dif.
- Will need outpatient colonoscopy in 4-6 weeks
- No acute surgical intervention, recommend nonoperative measures; loop of inflamed sigmoid is looping into the pelvis, likely causing her rectal pain
� Continue IV antibiotics
� Remain on full liquids
� Recommend DVT PPx
� Appreciate oncology for AML workup - will await their opinion on WBC
� Appreciate hospitalist
- Trend labs
Subjective Data
Subjective Data
Date of Service: March 08, 2025
Patient states she feels like her rectal pain has improved. Denies nausea or vomiting. She tolerated fulls without difficulty. Her pain is not worse today.
Objective Data
-
Vital Signs
Temp Pulse Resp BP Pulse Ox
99.1 F 77 16 141/73 95
03/08/25 07:47 03/08/25 07:47 03/08/25 07:47 03/08/25 07:47 03/08/25 07:47
Intake & Output
03/07/25 03/08/25 03/09/25
06:59 06:59 06:59
Intake Total 300 / 300 300 / 300 120 / 120
Balance 300 / 300 300 / 300 120 / 120
Intake:
Oral fluids 300 / 300 300 / 300 120 / 120
Other:
Number of approximated SMALL 2
amounts of urine
Number of approximated MODERATE 1 2
amounts of urine
Number of unmeasured liquid
stools
Rectum 6
Lab Results
03/08/25 05:47
03/08/25 05:47
Physical Exam
-
General: No Acute Distress and AOx3
Abdomen: Soft and Tender (mildly, lower abdomen)
Skin: Warm and Dry
--- NOTE | 2025-03-08 10:37 | W.PN.ONC2 ---
Today's Communication / Plan
-
transfer to [place]
start atria
monitor for DIC
monitor for TLS
Impression
Impression
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
Abdominal pain
Sepsis
Diverticulitis/colitis
History of renal cell carcinoma status post left partial nephrectomy
Plan
Plan
#suspected APL
-flow and peripheral smear suggestive for APL -will start atra -d/w pharmacy and consent placed on chart
-CBC with differential returned with 9% blast cells, originally read as 14%. Promyelocytes 22%. Total blast count 31%.
-Status post bone marrow biopsy successfully completed, final pathology results pending
-I have reached out to [place] Dr. Jaime to provide updates regarding peripheral flow to initiate transfer process -accepted in transfer as level 0
-if patient requires any blood products during her stay, please give CMV negative, irradiated products
-transfuse Hgb <7, platelets <50,000
-monitor tumor lysis labs and DIC panel, continue allopurinol. If urate >8 would give rasburicase
-give cryo if fibrinogen <150 with bleeding, give FFP if INR >1.7
Diverticulitis vs colitis
� Follow-up stool cultures, ova/parasite and fecal calprotectin
- No acute surgical intervention, cont nonoperative measures; loop of inflamed sigmoid is looping into the pelvis, likely causing her rectal pain
� Continue IV antibiotics
Pt and daughter at bedside provided updates and questions answered
Subjective/Objective
Subjective
no new complaints
Vital Signs:
Vital Signs
Temp Pulse Resp BP Pulse Ox
99.1 F 77 16 141/73 95
03/08/25 07:47 03/08/25 07:47 03/08/25 07:47 03/08/25 07:47 03/08/25 07:47
Lab Results:
Laboratory Data
WBC 36.9 10^3/uL (4.8-10.8) H 03/08/25 05:47
Hgb 11.2 g/dL (12.0-16.0) L 03/08/25 05:47
Plt Count 83 10^3/uL (130-400) L 03/08/25 05:47
PT 16.9 Sec (11.4-14.6) H 03/08/25 05:47
INR 1.34 03/08/25 05:47
APTT 33.2 Sec (23.4-35.0) 03/08/25 05:47
eGFR > 60.00 03/08/25 05:47
Physical Exam
HEENT: Moist Mucous Membranes; No Jaundice
Cardiology: Normal Sinus Rhythm
Pulmonary: Clear
GI: Soft
Extremities: Pulses Present; No Edema
Neuro: Non Focal
Orders
Orders
Orders From Last 24 Hours
03/07/25 10:53
Add On- LAB Routine
03/07/25 10:57
Echo 2D M-mode Dop w Strain Routine
03/07/25 11:00
Allopurinol [Zyloprim] 300 mg PO DAILY
03/08/25 05:47
D-Dimer IN AM
Fibrinogen IN AM
INR [Prothrombin Time] IN AM
LDH IN AM
PTT IN AM
Phos [Phosphorus] IN AM
Reticulocyte Count IN AM
Uric Acid IN AM
[2025-03-08 10:54] LABS: Absolute Neutrophils -Man Diff 6.6 10^3/uL (1.4-6.5); Atypical Lymphocytes 10 %; Band Neutrophils 2 % (0-3); Eosinophils 3 % (0-6); Lymphocytes 8 % (20-51); Myelocytes 4 % (-); Segmented Neutrophils 16 % (42-75)
[2025-03-08 10:55] LABS: Promyelocytes 7 % (-)
[2025-03-08 10:56] LABS: Normal RBC Morphology Yes; Platelets Checked Yes
[2025-03-08 10:58] LABS: Total Cells Counted 100
[2025-03-08 11:02] LABS: Blasts 50 % (-)
--- NOTE | 2025-03-08 12:49 | W.PN.HOSP.TC ---
Addendum entered and electronically signed by Seamus Aguilar MD 03/08/25 14:58:
[id number]
Original Note:
Today's Communication/Plan
-
Transfer to [place] for AML treatment
ATRA, allopurinol initiated by Onc
ceftriaxone, Flagyl
Follow-up stool cultures, C. difficile, ova/parasites, fecal calprotectin next
with loose stools today, and w/ history of C. difficile, possibly Related to antibiotic course: will empirically start p.o. Vanco daily; continue until 5 days after completion of antibiotics
Continue liquid diet
Will need colonoscopy in 4 to 6 weeks, spoke to GI to reach out to office
Assessment / Plan
Assessment / Plan
Physical Exam
General: Well Developed, Well Nourished and Appears in Distress (mild)
HEENT: NormoCephalic
Respiratory: Clear
Cardiac: S1/S2 and Regular Rhythm
GI: Tender (mid abdomen upon palpation improved)
Musculoskeletal: No Clubbing
Skin: Warm
Neuro: Awake and AO x 3
Hematologic/Lymphatic: No Lymphadenopathy
Psych: Calm
#Abdominal pain
#Colitis
#Sepsis with elevated white count, respiratory rate and source
� I suspect #diverticulitis/colitis most likely infectious
- CT imaging with improved findings of diverticulitis, moderate colitis still present
- Onc consulted CRS, nothing to do surgically
� ceftriaxone, Flagyl
� Follow-up stool cultures, C. difficile, ova/parasites, fecal calprotectin next
�with loose stools today, and w/ history of C. difficile, possibly Related to antibiotic course: will empirically start p.o. Vanco daily; continue until 5 days after completion of antibiotics
� Monitor CBC, fever curve
� Continue for liquid diet
� IV fluids
� Supportive care with pain regimen and antiemetics, supportive care
�Will need colonoscopy in 4 to 6 weeks, spoke to GI to reach out to office
#Elevated blast cells
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
� Oncology consulted
- Bone marrow Bx path pending
- Flow cyto send and pending
- Onc engaged with [facility] regarding Tx -hopeful to transfer today
#Hx Positive Rickettsia
� Follow-up outpatient
#hx of CDiff
-empirically start PO vanc
#DVT prophylaxis
HSQ
More than 30 minutes spent in discharge including
Final examination of the patient
Summarizing hospital stay
Instructions for continuing care to all relevant caregivers
Preparation of discharge records, prescriptions, and referral forms
Total time spent (in minutes): 36
Anticipated Discharge: Today
Subjective/Interval History
-
Date of Service: March 08, 2025
Abdominal pain and rectal pressure improved, not having few episodes of loose stool
Objective Data
-
Labs:
Laboratory Results
03/08/25
05:47
WBC 36.9 H
Hgb 11.2 L
Hct 31.7 L
Plt Count 83 L
PT 16.9 H
INR 1.34
APTT 33.2
Sodium 142
Potassium 3.5
Chloride 109 H
Carbon Dioxide 26
BUN 4 L
Creatinine 0.7
Glucose 130 H
Calcium 8.8
Total Bilirubin 0.7
AST 20
ALT 17
Alkaline Phosphatase 46
Vital Signs:
Vital Signs
Temp Pulse Resp BP Pulse Ox
99.1 F 77 16 141/73 95
03/08/25 07:47 03/08/25 07:47 03/08/25 07:47 03/08/25 07:47 03/08/25 07:47
I&O
03/07/25 03/08/25 03/09/25
06:59 06:59 06:59
Intake Total 300 / 300 300 / 300 120 / 120
Balance 300 / 300 300 / 300 120 / 120
Review of Systems
-
History Source: Patient
All other systems: Not reviewed unless documented
Data Reviewed
-
CT Scan: Report Reviewed by me
Labs: Labs Reviewed by me
--- NOTE | 2025-03-08 12:55 | W.DS.TRANS ---
DC Summary - Board Attendant
-
Discharge Instructions:
Discharge Diagnosis/Procedures
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
#Abdominal pain
#Colitis
#Sepsis
#hx of CDiff
Diet Other diet,As tolerated
Additional Diets Full liquids -ADAT
Instructions:
Stand-Alone Forms:
Changes to Home Medications: Yes
Discharge Medications:
DC Medications w/original date entered in [employer]
cholecalciferol (vitamin D3) 1 tab PO MOWEFR@79903/05/25
ibuprofen 200 mg tablet (Advil) 600 mg PO DAILYPRN PRN mild pain 03/05/25
magnesium salicylate 1 tab PO MOWEFR@79903/05/25
propranolol 10 mg tablet 10 mg PO PRN SVT 03/05/25
vitamin B complex 1 tab PO MOWEFR@79903/05/25
zinc 1 tab PO MOWEFR@79903/05/25
Home Medication Changes
NA
Pending Results: No
[2025-03-08] MEDS: FIRVANQ 125 MG PO (14:43)
[2025-03-08 15:37] VITALS: BP 114/71
--- NOTE | 2025-03-08 15:42 | CM ---
Pt for transfer to [facility] for AML treatment. Bed available. MD completed ambulance transport to higher level of care.
Plan: Transfer to [facility]
[2025-03-08 16:51] LABS: Number Of Markers 42 markers; Source Blood
[2025-03-08 18:55] VITALS: BP 123/68
--- NOTE | 2025-03-08 21:02 | PTCARENOTE ---
Pt left with EMS @ approximately 2030hrs. Pt walked to the stretcher. No s/s of distress assessed. Pt DC'd.
[2025-03-12 01:29] LABS: Calprotectin, Fecal 52 ug/g (<=49)
== END 2025-03-08 20:52 | disposition short-term general hospital (02) | DRG 872 ==
LOC: 3 WEST ACU 18:32
PROVIDERS: Nurse Practitioner Acute Care; Physician Assistant; Radiology Diagnostic Radiology; ADMITTING PHYSICIAN Internal Medicine; CONSULT PHYSICIAN Surgery; EMERGENCY PHYSICIAN Emergency Medicine; FAMILY PHYSICIAN Family Medicine; OTHER PHYSICIAN Internal Medicine Hematology & Oncology
PROC: 07DR3ZX Extraction of Iliac Bone Marrow, Percutaneous Approach, Diagnostic (ICD-10-PCS; 2025-03-06)
DX: A41.9 Sepsis, unspecified organism (principal); C92.40 Acute promyelocytic leukemia, not having achieved remission; K57.32 Diverticulitis of large intestine without perforation or abscess without bleeding; I47.10 Supraventricular tachycardia, unspecified; K52.9 Noninfective gastroenteritis and colitis, unspecified; G43.909 Migraine, unspecified, not intractable, without status migrainosus; K59.00 Constipation, unspecified; Z88.1 Allergy status to other antibiotic agents; Z88.7 Allergy status to serum and vaccine; Z88.5 Allergy status to narcotic agent; Z85.528 Personal history of other malignant neoplasm of kidney; Z90.5 Acquired absence of kidney; E78.5 Hyperlipidemia, unspecified; Z80.0 Family history of malignant neoplasm of digestive organs; Z90.49 Acquired absence of other specified parts of digestive tract
CPT/HCPCS: 88305; 88311; 88312; 38222; 74177; 77012; 80053; 81003; 81015; 83615; 83690; 83735; 83993; 84100; 84550; 85025; 85027; 85045; 85379; 85384; 85610; 85730; 86140; 87045; 87046; 87324; 87427; 87449; 88313; 93005; 93306; 93356; 96361; 96365; 96375; 99284; Q9967

== ENCOUNTER 2025-04-07 03:49 | Emergency (ER) | payer OTHER, SELFPAY ==
[2025-04-07 03:58] VITALS: BMI 31.5
[2025-04-07 04:02] VITALS: BP 112/77
--- NOTE | 2025-04-07 04:02 | EDRN ---
Pt arrived into ED #4 via wheelchair, actively vomiting. Once finished, EKG obtained. Pt's HR now 100 and pt says she feels 'much better.' Pt has PICC R arm - portable CXR being done to confirm placement.
--- NOTE | 2025-04-07 04:06 | EDRN ---
Pt noticed her breathing was heavy which woke her up and she realized it was her heart racing. Pt used her oximeter - HR 160. has an bus driver/monitor which verified HR =160. Pt tried to take her pulse but was unable to do so. Pt had nausea,
unable to vomit until she arrived to ED. Pt denies cp, fever/chills/cough, abd pain, weakness. Pt has PICC line s/p 2-3 week in hospital chemo - pt has VN couple times per week that draws blood from PICC. Last chemo was oral 04/03.
[2025-04-07 04:52] LABS: Hematocrit 28.2 % (37.0-47.0); Hemoglobin 9.7 g/dL (12.0-16.0); Mean Corp Hgb Conc. 34.4 g/dL (33.0-37.0); Mean Corpuscular Volume 83.2 fL (81.0-99.0); Platelet Count 365 10^3/uL (130-400); Red Cell Dist. Width 17.0 % (11.5-14.5)
[2025-04-07 05:00] VITALS: BP 109/67
[2025-04-07 05:11] LABS: ALT (SGPT) 25 U/L (0-35); AST (SGOT) 24 U/L (14-36); Albumin 4.0 g/dl (3.5-5.0); Alkaline Phosphatase 67 U/L (38-126); Blood Urea Nitrogen 12 mg/dl (7-17); Calcium 8.9 mg/dl (8.4-10.2); Carbon Dioxide 20 mmol/L (22-30); Chloride 110 mmol/L (98-107); Estimated Creatinine Clearance 73 ml/min; Glucose 167 mg/dl (70-99); Potassium 4.1 mmol/L (3.5-5.1); Sodium 138 mmol/L (135-145); Total Protein 6.5 g/dl (6.3-8.2); eGFR > 60.00
[2025-04-07 05:24] LABS: Troponin I 0.016 ng/ml
[2025-04-07 06:00] VITALS: BP 102/63
[2025-04-07 06:34] LABS: Absolute Neutrophils -Man Diff 0.0 10^3/uL (1.4-6.5); Normal RBC Morphology No; Platelets Checked Yes
[2025-04-07 06:35] LABS: Anisocytosis 2+; Total Cells Counted 100
--- NOTE | 2025-04-07 06:38 | ED.GENMED ---
History of Present Illness
General
Chief Complaint: Heart Rate Problem
Source: patient, spouse and previous hospital records (Recent hospitalization February of this year for treatment of diverticulitis versus colitis. Also diagnosed with AML. Transferred to [facility].)
Exam Limitations: none
Time Seen by Provider: 04/07/25 04:06
Nursing documentation reviewed up to this point in time: agreed with
History of Present Illness
History of Present Illness:
This is a 69-year-old woman who was recently hospitalized 1 month ago for acute diverticulitis versus colitis. During her initial workup was found to have 20% blasts on blood smear. Bone marrow biopsy while hospitalized concerning for AML. She
was transferred from this hospital to [facility] in March 08 to initiate treatment for AML. She remained hospitalized for approximately 2 weeks and then discharged to home. She continues to follow with oncologist at [facility]
[place]. Her last oncologic infusion was over 2 weeks ago. She had also been taking 2 different immunologic medications which have also been discontinued as of last week.
Patient states a follow-up bone marrow biopsy performed last week was negative for cancer cells.
This morning she awoke with rapid heartbeat feeling that her heart was beating quite rapidly around 150-160. She has a prior history of SVT with last episode a number of years ago. Followed with Dr. Rosas at that time and was prescribed
propranolol 20 mg to take every 8 hours as needed. She did find this old prescription of propranolol but was afraid to take it as it was filled May 2021.
She denies chest pain but does admit to mild shortness of breath with palpitations. No dizziness nor lightheadedness.
Shortly after arrival to the ED she became nauseated, vomited and now feels markedly improved with heart rate improved to 80-100.
According to the nurse in triage, initial vital signs noted heart rate of 158.
Past History
Past History
ED Past Medical History: Arrthythmia (PSVT), Cancer (AML diagnosed February 2025) and Other (Migraine headaches, osteoarthritis; C. difficile colitis)
ED Past Surgical History: Gynecological (Laparoscopic BTL), Orthopedic and Other (Parathyroidectomy)
Social History
Tobacco: Non-smoker
Alcohol: None
Personal:
Living: with family
Employment: Retired
Family History
Family History: Negative Early CAD or CAD
Phy Exam
Physical Exam
Physical Exam:
GENERAL: 69-year-old woman appears her stated age, awake and alert, pleasant, appears in no acute distress. is accompanying.
EYE: anicteric
NECK: Supple, nontender, no meningismus, no significant adenopathy.
ENT: oral mucosa is moist. No rhinorrhea.
CARDIAC: Regular rate and rhythm. no murmur.
LUNGS: Clear breath sounds bilaterally, no acute respiratory distress, no wheezes/rales/rhonchi
ABDOMEN: Soft, nondistended, without focal tenderness, normoactive BS.
NEUROLOGICAL: Alert and oriented x3, no focal neuro deficits. Gait is steady.
SKIN: Warm and dry, normal color, skin intact. No rash.
MUSCULOSKELETAL: No C/C/E. peripheral pulses are full and equal b/l. No palpable tenderness.
PSYCH: Normal and appropriate interaction.
Course
Orders/Labs/Results
Orders:
Orders
04/07/25 03:51
EKG [Electrocardiogram (*1)] Urgent
Reason for Study: Bradycardia / Tachycardia
04/07/25 03:52
EKG- Treatment ONCE
04/07/25 03:57
Chest X-ray Portable [CR Chest Portable - 1 View] Stat
Comment:
Reason For Exam: confirm PICC placement
Reason Study Needs to be Portable: Patient Unstable
04/07/25 04:40
Complete Blood Count/With Diff Urgent
Comprehensive Metabolic Panel Urgent
Manual Differential Urgent
Comment: ADD ON
TSH Reflex To Free T4 Urgent
Troponin I Urgent
Abnormal Lab Results
04/07/25
04:40
WBC 0.5 L* 10^3/uL
(4.8-10.8)
RBC 3.39 L 10^6/uL
(4.20-5.40)
Hgb 9.7 L g/dL
(12.0-16.0)
Hct 28.2 L %
(37.0-47.0)
RDW 17.0 H %
(11.5-14.5)
Abs Neuts (Manual) 0.0 L* 10^3/uL
(1.4-6.5)
Segmented Neutrophils 15 L %
(42-75)
Lymphocytes (Manual) 81 H %
(20-51)
Monocytes (Manual) 1 L %
(2-9)
Chloride 110 H mmol/L
(98-107)
Carbon Dioxide 20 L mmol/L
(22-30)
Glucose 167 H mg/dl
(70-99)
04/07/25 04:40
04/07/25 04:40
Vital Signs
Initial and Last Documented VS:
Initial Vital Signs
Temp Pulse Resp Pulse Ox
98 F 158 30 100
04/07/25 03:52 04/07/25 03:52 04/07/25 03:52 04/07/25 03:52
Last Documented Vital Signs
Temp Pulse Resp BP Pulse Ox
98 F 78 22 102/63 94
04/07/25 03:52 04/07/25 06:00 04/07/25 06:00 04/07/25 06:00 04/07/25 06:00
MDM/Problems Addressed
Differential Diagnosis Includes:
Concern for tacky arrhythmia such as recurrent SVT, atrial fibrillation.
Palpitations and tachycardia have resolved shortly after arrival to the ED.
She remains hemodynamically stable. Currently asymptomatic.
She has history of AML with severe leukopenia. Concern for sepsis however patient reports no fever, no recent URI and she is currently afebrile.
Other consideration is thyroid disorder, progression of anemia.
Will check labs including troponin and TSH.
Will continue cardiac catheterization technologist.
Chronic conditions affecting care: Cancer and Other (Prior history of SVT)
*Radiology
Radiology exam reviewed: preliminary read by ED provider (Portable chest x-ray shows clear lung [place]in. Normal heart size. Right-sided PICC line is seen with the tip in the SVC.)
*Pulse Oximetry
SaO2: 94
Oxygen Mode of Delivery: Room air
Patient hypoxic: no
*EKG
Interpreted by ED Provider?: Yes
Interpretation: normal
Comparison EKG: no changes
Rate: normal
Rhythm: sinus
[place]: normal axis
Interval: normal interval
QRS Pattern: normal QRS
Ischemia: no ischemia
*[employer] Interpretation
Rate: normal
Interpretation: normal
Rhythm: sinus
*Critical Care Note
Total Time (30-74mins, 75-104mins- exclusive of procedures): Not Applicable
Update Note
Update Note:
Patient remains asymptomatic, monitor continues to show normal sinus rhythm.
She remains afebrile. No complaints offered.
Labs reveal significant leukopenia with white blood cell count of 0.5. According to patient this is improved from 0.1 last week.
Mild anemia with hemoglobin of 9.7, stable compared to previous 1 week ago. Normal platelet count.
Chemistries are unremarkable. Troponin is negative.
Will discharge to home with recommendations for continued follow-up with oncology. Recommend she follow-up with her vice admiral, Dr. Rosas.
Will refill propranolol for as needed use.
ED Attending Note
-
Portions of this chart may have been created with voice recognition software.� Occasional wrong word or��sound alike� substitutions may have occurred due to the inherent limitations of voice recognition software.
Discharge Plan
Departure
Patient Disposition: Home (Routine Discharge)
Date of Disposition: 04/07/25
Time of Disposition: 06:48
Patient with high blood pressure during this ER visit?: No
Condition: Good
Discharge Problem:
Paroxysmal supraventricular tachycardia
Instructions: Supraventricular tachycardia (SVT)
Prescriptions:
New
propranolol 20 mg tablet
20 mg PO TID PRN (Reason: palpitations) Qty: 30 0RF
No Action
tramadol 50 mg Tablet
50 mg PO Q6H PRN (Reason: headache)
acyclovir 800 mg Tablet
800 mg PO BID
ergocalciferol (vitamin D2) 1,250 mcg (50,000 unit) Capsule
1,250 mcg PO QWEEK
levofloxacin 500 mg Tablet
500 mg PO NOON
Referrals:
UNKNOWN - PT DOES,NOT KNOW [Family Provider]
Edvin Rosas MD [Active, Cardiology] - Call in 1-3 days for appt
Interventions
Interventions:
*Risk Screen - Suicide Last Done: 04/07/25 03:52
*General Assessment Last Done: 04/07/25 03:52
*Neglect/Abuse Screening Last Done: 04/07/25 03:52
*ED- Fall Risk Assessment Last Done: 04/07/25 04:05
ED- Cardiac Assessment Last Done: 04/07/25 04:16
ED- Pulmonary Assessment Last Done: 04/07/25 04:16
Discharge Date and Time
Print Language: ESTONIAN
== END 2025-04-07 07:02 | disposition home or self-care (01) ==
LOC: EMR 03:49
PROVIDERS: EMERGENCY PHYSICIAN Emergency Medicine
DX: I47.19 Other supraventricular tachycardia (principal); C92.00 Acute myeloblastic leukemia, not having achieved remission; M19.90 Unspecified osteoarthritis, unspecified site; Z45.2 Encounter for adjustment and management of vascular access device; Z86.79 Personal history of other diseases of the circulatory system; Z98.51 Tubal ligation status
CPT/HCPCS: 99283; 71045; 80053; 84443; 84484; 85025; 93005

== ENCOUNTER → 2025-06-24 12:49 | Outpatient (REF) | payer OTHER, SELFPAY | LOC: WDC 12:49 | PROVIDERS: ATTENDING PHYSICIAN Family Medicine | DX: Z12.31 Encounter for screening mammogram for malignant neoplasm of breast (principal) | CPT/HCPCS: 77063; 77067 ==

== ENCOUNTER → 2025-07-08 14:11 | Outpatient (REF) | payer OTHER, SELFPAY | LOC: RAD 14:11 | PROVIDERS: ATTENDING PHYSICIAN Family Medicine; OTHER PHYSICIAN Internal Medicine Medical Oncology | DX: Z13.820 Encounter for screening for osteoporosis (principal); Z78.0 Asymptomatic menopausal state | CPT/HCPCS: 77080 ==

== ENCOUNTER 2025-09-18 06:23 | Day surgery (SDC) | payer OTHER, SELFPAY | END 2025-09-18 08:52 | disposition home or self-care (01) | LOC: GI 06:23 | PROVIDERS: ATTENDING PHYSICIAN Internal Medicine | DX: Z12.11 Encounter for screening for malignant neoplasm of colon (principal); K55.20 Angiodysplasia of colon without hemorrhage; K57.30 Diverticulosis of large intestine without perforation or abscess without bleeding; K64.8 Other hemorrhoids; K63.5 Polyp of colon; Z98.0 Intestinal bypass and anastomosis status | CPT/HCPCS: 45385; 88305 ==